=== PATIENT | male | born 1960 | race Caucasian/White ===

== ENCOUNTER 2016-08-12 09:02 | Emergency (ER) | payer OTHER ==
--- NOTE | 2016-08-14 11:27 | ER ---
ADMIT: 08/12/2016 RM/LOC: ER [facility] MR#: [id number] [address] [id number] [address] [place] [address] Emergency Room Report SEX: M AGE: 56 : 1960 DATE: 08/12/2016 ADDENDUM: CHIEF COMPLAINT: Chest pain and slurred speech. HISTORY OF PRESENT ILLNESS: This is a 56-year-old male who works that [employer]. He was working yesterday. Around noon, he said he started to feel chest pain, kind of weakness in both his arms. Son went to go check on him this morning. He said he had a hard time understand him, seemed to have some slurred speech. Then patient also complained of some left-sided chest wall pain going into his left shoulder, so he is brought into the ER. A CT of his head was done to rule out CVA due to his slurred speech this morning, which has resolved prior to ER. The CT is negative. Chest x-ray, CBC, CMP, troponin, CK, CK-MB, EKG, and DuoNeb were done. DuoNeb actually did relieve his pain quite a bit. CBC and CMP were normal except for slightly elevated bilirubin of 2.1. Cardiac enzymes were normal. EKG was unchanged compared to a previous EKG that we had Family Practice faxed over to us showed sinus rhythm at a rate of 68. This patient did have a stress test in January of 2015 which was negative. His cardiac enzymes are normal after almost 24 hours of chest pain and also pain resolved with DuoNeb. I did speak with Dr. Ríos regarding this patient due to Dr. Mario Suarez being out of office. He felt okay with this patient going home. We did make an appointment for him to be rechecked tomorrow. He has an appointment at 9:[address] Mario Suarez tomorrow morning to recheck. CLINICAL IMPRESSION: Atypical chest pain with history of tuberculosis. DISPOSITION: Stable at discharge. We will follow up tomorrow. SHANE Hernandez / Darnell Stern MD / tushar JOB #: [id number] CC: Darnell Stern MD, Attending Physician UNKNOWN, Family Physician
== END 2016-08-12 11:00 | disposition home or self-care (01) ==
LOC: ER 09:02
DX: R07.89 Other chest pain (principal); I10 Essential (primary) hypertension; E78.5 Hyperlipidemia, unspecified

== ENCOUNTER → 2016-08-19 | Outpatient (CLI) | payer OTHER ==
--- NOTE | ~2016-08-19 | ECH ---
Transthoracic Echocardiography Report (TTE) Demographics Patient Name PARK LAWTON, Date of Study 08/19/2016 KAREN Cano Patient Number [id number] Visit Number [id number] Date of 1960 Room Number Accession Number [id number] Gender Male Age 56 year(s) Referring Erick Perez MD Merchandise Carrier Korina Aparicio [facility] Physician Physician Interpreting Pierre Friedman Board Runner Physician MD Supervising Ordering Physician Erick Perez MD/KULDIPP Nurse Stress Crook Operator Conclusions Summary Technically difficult exam, apical images off axis. The estimated left ventricular ejection fraction is 50-55%. Mild tricuspid regurgitation by color Doppler. There is mild pulmonary hypertension. The pulmonary pressure (RVSP) is 39 mmHg. Trivial pulmonic valve regurgitation by color Doppler. Procedure Type of Study TTE procedure:Echo Complete SF. Procedure Date Date: 08/19/2016 Start: 01:02 PM Technical Quality: Fair due to body habitus. Indications:Chest pain and Dizziness. Appropriate Use Criteria: 9 Height: 65 inches Weight: 124 pounds BSA: 1.61 m Rhythm: NSR HR: 60 bpm BP: 122/72 mmHg M-Mode/2D Measurements LV Diastolic Dimension: 4.5 cm LV Systolic Dimension: 3.69 cm LV Septum Diastolic: 0.67 cm LV PW Diastolic: 0.75 cm AO Root Dimension: 2.87 cm Cardiac Output: 2.71 l/min LA Dimension: 2.18 cm Cardiac Index: 1.68 l/min*m LA volume index: 10 ml/m LVOT: 2.15 cm RV Base: 3.14 cm LVOT VTI: 12.43 cm LV Stroke volume: 45.1 ml LV Stroke volume index: 28.01 ml/m Doppler Measurements AV Peak Velocity: 0.7 m/s MV Peak E-Wave: 0.68 m/s AV Peak Gradient: 1.96 mmHg MV Peak A-Wave: 0.57 m/s AV Mean Gradient: 0.98 mmHg MV E/A Ratio: 1.2 LVOT Peak Velocity: 0.66 m/s MV P1/2t: 56.7 msec AV Area (Continuity):3.43 cm MV Deceleration Time: 198.3 msec TR Velocity:2.92 m/s MV Area (PHT): 3.88 cm TR Gradient:34.04 mmHg PV Peak Velocity: 0.56 m/s Estimated RAP:5 mmHg PV Peak Gradient: 1.26 mmHg Estimated RVSP: 39 mmHg Estimated PASP: 39.04 mmHg RA Area: 9.86 cm Findings Left Ventricle Normal left ventricle size and function. Diastolic assessment reveals normal relaxation. Right Ventricle Right ventricle not well seen. Left Atrium Normal left atrial size. Right Atrium Normal right atrial size. Mitral Valve Mild thickening of the mitral valve leaflets. Aortic Valve Normal aortic valve structure and function. Tricuspid Valve Normal tricuspid valve structure and function. Mild tricuspid regurgitation by color Doppler. There is mild pulmonary hypertension. The pulmonary pressure (RVSP) is 39 mmHg. Pulmonic Valve Normal pulmonic valve structure and function. Trivial pulmonic valve regurgitation by color Doppler. Pericardial Effusion No evidence of pericardial effusion. Miscellaneous Visualized portions of the aortic root and ascending aorta appear normal in size. Pleural Effusion No evidence of pleural effusion. Signature
== END | disposition home or self-care (01) ==
LOC: CARD 08-13 10:26 → RAD.S 08-17 13:00 → CARD 12:39
DX: R07.89 Other chest pain (principal); R42 Dizziness and giddiness; E78.5 Hyperlipidemia, unspecified; I07.1 Rheumatic tricuspid insufficiency; I27.2 Other secondary pulmonary hypertension